=== PATIENT | male | born 1975 | race Caucasian/White ===

== ENCOUNTER → 2017-03-01 | Outpatient (CLI) | payer OTHER | END | disposition home or self-care (01) | LOC: CFH 12:34 | PROVIDERS: ATTEND Urology | DX: N43.3 Hydrocele, unspecified (principal); N50.89 Other specified disorders of the male genital organs | CPT/HCPCS: 76870 ==

== ENCOUNTER 2020-05-07 12:41 | Emergency (ER) | payer OTHER ==
[~2020-05-07] VITALS: Ht 177.8 cm; Wt 70.9 kg
--- NOTE | 2020-05-07 13:06 | NUR ---
PT TO ROOM T2 W/ C/O L SHOULDER PAIN AND DISLOCATION. PT STATES HE WAS OUT ROAD BIKING WHEN HE FELL ON HIS L SIDE. DENIES HITTING HEAD. DENIES NECK INJURY. NO PAIN ON PALPATION. PT RESTING ON GURNEY. MONITORS APPLIED. VSS. ERP DR. OMALLEY AT BEDSIDE FOR EVAL.
[2020-05-07] MEDS ORDERED: DIPH,PERTUSS(ACELL),TET VAC/PF 0.5 ML IM-VACC ONE ×2 (13:11→13:30)
[2020-05-07] MEDS ORDERED: MORPHINE SULFATE 4 MG/ML, 1ML ONE ×2 (13:11→14:08)
[2020-05-07] MEDS ORDERED: ONDANSETRON 2MG/ML, 2ML ONE (13:11)
[2020-05-07] MEDS: MORPHINE SULFATE 4 MG/ML, 1ML IVPush PRN ×2 (13:13→14:10)
[2020-05-07] MEDS ORDERED: SODIUM CHLORIDE FLUSH 10ML SYR IVF ONE (13:30)
[2020-05-07] MEDS ORDERED: ONDANSETRON 2MG/ML, 2ML IVPush ONE (13:30)
[2020-05-07] MEDS ORDERED: ETOMIDATE 20 MG/10 ML ONE (14:13)
[2020-05-07] MEDS ORDERED: FENTANYL PF 100 MCG/2ML ONE (14:13)
[2020-05-07] MEDS ORDERED: FENTANYL PF 100 MCG/2ML IVPush ONE (14:30)
[2020-05-07] MEDS ORDERED: ETOMIDATE 40 MG/20 ML IVPush ONE (14:30)
[2020-05-07] MEDS ORDERED: PROPOFOL 10 MG/ML, 20ML ONE (14:39)
--- NOTE | 2020-05-07 14:45 | NUR ---
1431: START OF PROCEDURE 1432: 50 MCG FENTANYL GIVEN 1433: 10 MG ETOMINDATE GIVEN 1435: 5 MG ETOMIDATE GIVEN 1436: 5 MG ETOMIDATE GIVEN 1439: 25 MCG FENTANYL GIVEN 1440: 50 MG PROPOFOL GIVEN 1442: 50 MG PROPOFOL GIVEN 1443: PT SHOULDER REDUCED AND SHOULDER IMMOBILIZER APPLIED 1444: END OF PROCEDURE. PT TOLERATED WELL. SEE PAPER CHART FOR VS.
--- NOTE | 2020-05-07 14:48 | NUR ---
PT AWAKE ALERT AND TALKING.
--- NOTE | 2020-05-07 15:16 | NUR ---
BREAK RN: PT RESTING IN ROOM. VS STABLE. CALL LIGHT IN PLACE. FAMILY AT BEDSIDE. WILL CONTINUE TO MONITOR WHILE PRIMARY RN IS ON BREAK.
[2020-05-07] MEDS ORDERED: PROPOFOL 10 MG/ML, 20ML IVPush ONE (15:30)
[2020-05-07 15:34] VITALS: BP 141/92
--- NOTE | 2020-05-07 15:35 | NUR ---
BREAK RN: PT RESTING IN ROOM. REGULAR RESP. NO ACUTE DISTRESS NOTED. FAMILY AT BEDSIDE. WILL CONTINUE TO MONITOR WHILE PRIMARY RN IS ON BREAK.
== END 2020-05-07 16:01 | disposition home or self-care (01) ==
LOC: ED 13:17
DX: S42.022A Displaced fracture of shaft of left clavicle, initial encounter for closed fracture (principal); S43.005A Unspecified dislocation of left shoulder joint, initial encounter; V87.8XXA Person injured in other specified noncollision transport accidents involving motor vehicle (traffic), initial encounter; Y93.55 Activity, bike riding; Y92.410 Unspecified street and highway as the place of occurrence of the external cause; Y99.8 Other external cause status
CPT/HCPCS: 23650; 73000; 73030; 90471; 90715; 96374; 96375; 96376; 99152; 99285; J2270; J2405; J3010